=== PATIENT | male | born 1940 | race Caucasian/White ===

== ENCOUNTER 2016-10-25 09:26 | Outpatient (CLI) | payer OTHER ==
[~2016-10-25 09:26] MED LIST: ATORVASTATIN CA10 MG PO; VITAMIN D-31000 UNIT PO
--- NOTE | 2016-10-25 11:01 | DIAGNOSTIC IMAGING REPORT ---
PROCEDURE: XR HIP BILATERAL INDICATION: DEGENERATIVE DISC DISEASE, HIP PAIN RIGHT TECHNIQUE: AP view of the pelvis and hips with lateral views of the bilateral hips. COMPARISON: None. FINDINGS: RIGHT HIP: Severe osteoarthritis with joint space narrowing and sclerosis of the acetabulum. LEFT HIP: Severe osteoarthritis with joint space narrowing and sclerosis of the acetabulum. PELVIS: Osseous pelvis is normal. IMPRESSION: 1. Severe osteoarthritis bilateral hips.
--- NOTE | 2016-10-25 11:02 | DIAGNOSTIC IMAGING REPORT ---
PROCEDURE: XR LUMBAR SPINE 2 OR 3 VIEWS INDICATION: DEGENERATIVE DISC DISEASE, HIP PAIN RIGHT TECHNIQUE: Three views. COMPARISON: None. FINDINGS: Severe spondylosis and spinal stenosis at L4-5. There is a large posterior osteophytic ridge at this level. No evidence of an acute process or fracture. Mild spondylosis L2-3 and L5-S1 IMPRESSION: 1. 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
== END 2016-10-25 23:00 ==
LOC: XR SRH 09:26
DX: M16.0 Bilateral primary osteoarthritis of hip (principal); M47.816 Spondylosis without myelopathy or radiculopathy, lumbar region